=== PATIENT | male | born 1980 | race Caucasian/White ===

== ENCOUNTER 2019-06-04 15:20 | Emergency (ER) | payer BC, SELFPAY ==
[2019-06-04 15:20] VITALS: PULSE 90
[2019-06-04 15:22] VITALS: BP 135/87; RESP 16; TEMP 36.9; BMI 26.4
[2019-06-04 15:27] VITALS: PULSE 77; O2SAT 97
--- NOTE | 2019-06-04 15:33 | XR_ITS ---
WS: [id number] XR hand LT min 3V* [id number] REASON FOR EXAM: trauma FINDINGS: Comminuted fracture of the distal phalanx of the third digit with a spiral fracture in the middle and proximal third phalanx. Displacement of the distal fourth phalanx with fracture through th e distal tuft. XR/XR hand LT min 3V* [id number] IMPRESSION: Dislocation of the distal fourth phalanx with a tuft fracture Comminuted tuft fracture of the distal phalanx with partial amputation of the t hird digit with spiral fractures of the middle and proximal third phalanges.
--- NOTE | 2019-06-04 15:34 | W.ED.GENADLT ---
Documented by User: TIMUR Chou 06/04/19 15:57 HPI - General Adult General: Chief complaint: Extremity Injury, Upper Stated complaint: middle and ring fingers lacerations Time Seen by Provider: 06/04/19 15:23 History of Present Illness: HPI narrative: Patient got to middle fingers the left hand into the marker just about hour or 2 ago. Planes about pain laceration open wound. Tetanus is up-to-date MD complaint: Open fracture Onset (ago): hour(s) Location: left and upper extremity Severity: severe Severity scale (1-10): 8 Quality: aching Pain Consistency: constant Associated symptoms: Deny chest pain, dyspnea, headache(s), nausea, rash or vomiting Treatments prior to arrival: none Review of Systems Const: Denies: fever, chills or body aches Eyes: Denies: change in vision or blurry vision ENMT: Denies: throat pain or nasal congestion Card: Denies: chest pain or shortness of breath on exertion Resp: Denies: shortness of breath, productive cough or non-productive cough GI: Denies: abdominal pain, nausea or vomiting : Denies: difficulty urinating Musc: Reports: extremity pain and deformity (Left hand #3 and 4 fingers with open fracture laceration) Skin/Breast: Denies: rash Neuro: Denies: headache Psych: Denies: anxiety or depression Lucho/Lymph: Denies: easy bruising PFSH ED PFSH: Social History Smoking and tobacco status: never smoked Physical Exam Const: COMMON NORMALS: no apparent distress, average body habitus and oriented x3 HENMT: COMMON NORMALS: normocephalic HEAD & SCALP: normal to inspection and normocephalic FACE & SINUS: normal facial exam Eye: COMMON NORMALS: conjunctivae normal GENERAL EYE: normal appearance of both eyes CONJUNCTIVA: Yes conjunctivae normal Neck/C-Spine: COMMON NORMALS: no JVD Chest: COMMONS NORMALS: inspection of chest normal Resp: COMMON NORMALS: normal respiratory effort and clear to auscultation bilaterally AUSCULTATION: clear to auscultation bilaterally Cardio: COMMON NORMALS: no JVD, regular rate and regular rhythm RATE: regular rate RHYTHM: regular rhythm GI: COMMON NORMALS: normal to inspection, nondistended, normoactive bowel sounds Extremity: COMMON NORMALS: normal to inspection and full ROM LEFT UPPER EXTREMITY: Yes hand & digits (Laceration and bone fragments found in #3-4 fingers distal aspect with no active bleeding) Neuro: COMMON NORMALS: oriented x3 Course Vital Signs: Vital signs: Vital Signs Temperature 98.5 F 06/04/19 15:22 Pulse Rate 62 06/04/19 17:15 Respiratory Rate 18 06/04/19 17:15 Blood Pressure 140/84 06/04/19 17:15 Pulse Oximetry 97 06/04/19 17:15 MDM - General Adult MDM Narrative: Medical decision making narrative: Discussed case with Dr. Funez and he is taking the case over Lab Data: Labs: Lab Results 06/04/19 06/04/19 06/04/19 Range/Units 15:42 15:42 15:42 WBC 7.3 (4.0-10.0) 10^3/ uL RBC 5.25 (4.1-5.3) 10^6/u L Hgb 15.5 (11.7-16.6) g/dL Hct 43.7 (42.0-52.0) % MCV 83.2 (80-94) fL MCH 29.5 (28.0-34.0) pg MCHC 35.5 (30.0-36.0) g/dL RDW 11.8 L (12.1-15.1) % Plt Count 218 (130-400) 10^3/c mm MPV 10.2 (7.4-10.4) fL Neut % (Auto) 67.9 % Lymph % (Auto) 24.9 % Gallia % (Auto) 5.5 % Eos % (Auto) 1.2 % Baso % (Auto) 0.4 % Neut # (Auto) 4.9 (1.8-7.7) 10^3/u L Lymph # (Auto) 1.8 (0.8-4.8) 10^3/u L Gallia # (Auto) 0.4 (0.2-0.9) 10^3/u L Eos # (Auto) 0.1 (0.0-0.8) 10^3/u L Baso # (Auto) 0.0 (0.0-0.1) 10^3/u L Nucleated RBC % (a uto) 0 % Nucleated RBCs # 0.0 /100WBC PT 14.00 H (10.5-13.3) SECO NDS INR 1.05 (0.8-1.2) Sodium 138 (136-145) mmol/L Potassium 3.9 (3.5-5.1) mmol/L Chloride 104 (98-107) mmol/L Carbon Dioxide 24 (22-29) mmol/L Anion Gap 13.9 (5-19) BUN 25 H (6-20) mg/dL Creatinine 1.0 (0.7-1.2) mg/dL GFR Calculation 84.5 L (90-130) mL/min Glucose 123 H (65-115) mg/dL Calcium 9.8 (8.5-10.5) mg/dL Total Bilirubin 0.3 (0.15-1.2) mg/dL AST 19 (0-40) U/L ALT 28 (0-41) U/L Alkaline Phosphata se 92 (40-130) IU/L Total Protein 7.4 (6.6-8.7) g/dL Albumin 4.5 (3.5-5.2) g/dL Globulin 2.9 (1.3-4.6) g/dL Discharge Plan Discharge Patient Disposition: Home, Self-Care Condition: Stable Prescriptions: New Augmentin 875-125 mg tablet 1 tab PO Q12H 7 Days Qty: 14 RF: 0 mupirocin 2 % ointment 1 applic TOPICAL DAILY Qty: 30 RF: 0 tramadol 50 mg tablet 50 mg PO Q8H PRN (Reason: pain) Qty: 20 RF: 0 No Action Vitamin C 1,000 mg Tablet 500 mg PO DAILY RF: 0 Fish Oil 1 cap PO DAILY RF: 0 Discharge Orders: Discharge Order (Routine); Ordered 06/04/19 Ordered By: Riley Evans Referrals: Isai Rdz MD [Primary Care Provider] - Activity Restrictions/Additional Instructions: Bulky wet dressing change once a day use topical antibiotic. Oral antibiotic twice a day pain medicine as as prescribed. Ortho clinic will call next week with an appointment for early follow-up. Discharge Date/Time: 06/04/19 17:16 Sign Out Sign Out Data: Patient Sign Out occurred on 06/04/19 at 15:59. Patient's care was discussed, and care was transferred from to Riley Evans DO. Coding Level of Care Code ED Lathe Sander for Chg Fwd Exam Comprehensive Documented by User: Riley Evans DO 06/04/19 17:26 HPI - General Adult General: Chief complaint: Extremity Injury, Upper Stated complaint: middle and ring fingers lacerations Time Seen by Provider: 06/04/19 15:23 PFS ED PFSH: Social History Smoking and tobacco status: never smoked Physical Exam Extremity: OTHER: Left third and fourth fingers show crush injury with avulsion of the nails. X-rays show distal tuft pulverization fracture on the third finger and fracture of the distal phalanx on the fourth. No active bleeding. Patient reports his tetanus is up-to-date. Course ED course: Patient seen and examined by myself. I also discussed the case with Dr. Gaviria. Patient would prefer to treat conservatively and if it does not heal well or show signs of infection then would wish to have partial amputation of the tips of the finger. We discussed the risks and benefits he actually had an extremely similar episode 10 years ago and managed to not have to have an amputation of his right index finger. Given a gram of Ancef start him on Augmentin and gave tramadol for pain at home elevate hand to use topical antibiotic ointment and change dressings at least once a day will make a short-term follow-up with Ortho in 2 to 3 days. If he has any worsening or development or problems in the interval he should return immediately to the emergency room. Vital Signs: Vital signs: Vital Signs Temperature 98.5 F 06/04/19 15:22 Pulse Rate 62 06/04/19 17:15 Respiratory Rate 18 06/04/19 17:15 Blood Pressure 140/84 06/04/19 17:15 Pulse Oximetry 97 06/04/19 17:15 MDM - General Adult MDM Narrative: Medical decision making narrative: I supervised care provided to Ruel Louie by the DIRECTOR INPATIENT HEADACHE PROGRAM/PA. I personally interviewed the patient. Lab Data: Labs: Lab Results 06/04/19 06/04/19 06/04/19 Range/Units 15:42 15:42 15:42 WBC 7.3 (4.0-10.0) 10^3/ uL RBC 5.25 (4.1-5.3) 10^6/u L Hgb 15.5 (11.7-16.6) g/dL Hct 43.7 (42.0-52.0) % MCV 83.2 (80-94) fL MCH 29.5 (28.0-34.0) pg MCHC 35.5 (30.0-36.0) g/dL RDW 11.8 L (12.1-15.1) % Plt Count 218 (130-400) 10^3/c mm MPV 10.2 (7.4-10.4) fL Neut % (Auto) 67.9 % Lymph % (Auto) 24.9 % Gallia % (Auto) 5.5 % Eos % (Auto) 1.2 % Baso % (Auto) 0.4 % Neut # (Auto) 4.9 (1.8-7.7) 10^3/u L Lymph # (Auto) 1.8 (0.8-4.8) 10^3/u L Gallia # (Auto) 0.4 (0.2-0.9) 10^3/u L Eos # (Auto) 0.1 (0.0-0.8) 10^3/u L Baso # (Auto) 0.0 (0.0-0.1) 10^3/u L Nucleated RBC % (a uto) 0 % Nucleated RBCs # 0.0 /100WBC PT 14.00 H (10.5-13.3) SECO NDS INR 1.05 (0.8-1.2) Sodium 138 (136-145) mmol/L Potassium 3.9 (3.5-5.1) mmol/L Chloride 104 (98-107) mmol/L Carbon Dioxide 24 (22-29) mmol/L Anion Gap 13.9 (5-19) BUN 25 H (6-20) mg/dL Creatinine 1.0 (0.7-1.2) mg/dL GFR Calculation 84.5 L (90-130) mL/min Glucose 123 H (65-115) mg/dL Calcium 9.8 (8.5-10.5) mg/dL Total Bilirubin 0.3 (0.15-1.2) mg/dL AST 19 (0-40) U/L ALT 28 (0-41) U/L Alkaline Phosphata se 92 (40-130) IU/L Total Protein 7.4 (6.6-8.7) g/dL Albumin 4.5 (3.5-5.2) g/dL Globulin 2.9 (1.3-4.6) g/dL Discharge Plan Discharge Patient Disposition: Home, Self-Care Condition: Stable Prescriptions: New Augmentin 875-125 mg tablet 1 tab PO Q12H 7 Days Qty: 14 RF: 0 mupirocin 2 % ointment 1 applic TOPICAL DAILY Qty: 30 RF: 0 tramadol 50 mg tablet 50 mg PO Q8H PRN (Reason: pain) Qty: 20 RF: 0 No Action Vitamin C 1,000 mg Tablet 500 mg PO DAILY RF: 0 Fish Oil 1 cap PO DAILY RF: 0 Discharge Orders: Discharge Order (Routine); Ordered 06/04/19 Ordered By: Riley Evans Referrals: Isai Rdz MD [Primary Care Provider] - Activity Restrictions/Additional Instructions: Bulky wet dressing change once a day use topical antibiotic. Oral antibiotic twice a day pain medicine as as prescribed. Ortho clinic will call next week with an appointment for early follow-up. Discharge Date/Time: 06/04/19 17:16 Sign Out Sign Out Data: Patient Sign Out occurred on 06/04/19 at 15:59. Patient's care was discussed, and care was transferred from to Riley Evans DO. Coding Level of Care Code ED Lathe Sander for Chg Fwd Exam Comprehensive
[2019-06-04 15:53] VITALS: RESP 16
[2019-06-04] MEDS: ondansetron 2 mg/ML SDV 2 mL 4 MG IVP (15:53)
[2019-06-04] MEDS: morphine 4 mg/mL SDV 1 mL IVP (15:53)
[2019-06-04 16:03] LABS: Basophils % 0.4 %; Eosinophils # 0.1 10^3/uL (0.0-0.8); Eosinophils % 1.2 %; Hematocrit 43.7 % (42.0-52.0); Hemoglobin 15.5 g/dL (11.7-16.6); Lymphocytes # 1.8 10^3/uL (0.8-4.8); Lymphocytes % 24.9 %; Mean Corpuscular HGB Conc 35.5 g/dL (30.0-36.0); Mean Corpuscular Hemoglobin 29.5 pg (28.0-34.0); Mean Corpuscular Volume 83.2 fL (80-94); Mean Platelet Volume 10.2 fL (7.4-10.4); Monocytes # 0.4 10^3/uL (0.2-0.9); Monocytes % 5.5 %; Neutrophils # 4.9 10^3/uL (1.8-7.7); Neutrophils % 67.9 %; Nucleated Red Blood Cells % 0 %; Platelet Count 218 10^3/cmm (130-400); Red Blood Count 5.25 10^6/uL (4.1-5.3); Red Cell Distribution Width 11.8 % (12.1-15.1); White Blood Count 7.3 10^3/uL (4.0-10.0)
[2019-06-04] MEDS: ceFAZolin 1,000 MG in sodium chloride 0.9% (plus) 50 ML 100 MG IV (16:07)
[2019-06-04 16:08] LABS: INR 1.05 (0.8-1.2)
[2019-06-04] MEDS: sodium chloride 0.9% 1,000 ML 100 ML IV (16:08)
[2019-06-04 16:13] LABS: Alanine Aminotransferase 28 U/L (0-41); Albumin Level 4.5 g/dL (3.5-5.2); Alkaline Phosphatase 92 IU/L (40-130); Anion Gap 13.9 (5-19); Aspartate Amino Transferase 19 U/L (0-40); Blood Urea Nitrogen 25 mg/dL (6-20); Calcium 9.8 mg/dL (8.5-10.5); Carbon Dioxide 24 mmol/L (22-29); Chloride 104 mmol/L (98-107); Globulin 2.9 g/dL (1.3-4.6); Glomerular Filtration Rate 84.5 mL/min (90-130); Glucose 123 mg/dL (65-115); Potassium 3.9 mmol/L (3.5-5.1); Sodium 138 mmol/L (136-145); Total Bilirubin 0.3 mg/dL (0.15-1.2); Total Protein 7.4 g/dL (6.6-8.7)
[2019-06-04 17:15] VITALS: BP 140/84; PULSE 62; RESP 18; O2SAT 97
--- NOTE | 2019-06-07 15:41 | DCPLANNER ---
government sales manager had message to schedule a follow up appointment for patient with ortho. government sales manager called the ortho clinic, spoke with Catrina, gave clinic patients information. government sales manager was told that patients information would be printed and reviewed. Clinic will call case management director and patient with appointment information.
--- NOTE | 2019-06-23 09:24 | DCPLANNER ---
electrical and instrumentation manager spoke with Kaela at [facility], about an appointment for patient, employment evaluator/case manager was told that patient will be seen in clinic if the need arises.
== END 2019-06-04 17:16 | disposition home or self-care (01) ==
PROVIDERS: Nurse Practitioner Family; Emergency Provider Family Medicine; Family Provider Urology; PCP Urology
DX: S62.635A Displaced fracture of distal phalanx of left ring finger, initial encounter for closed fracture (principal); S62.613A Displaced fracture of proximal phalanx of left middle finger, initial encounter for closed fracture; X58.XXXA Exposure to other specified factors, initial encounter
CPT/HCPCS: 73130; 80053; 85025; 85610; 96361; 96365; 96375; 99282; 99283; J0690; J2270; J2405; J7030

== ENCOUNTER → 2019-11-09 15:03 | Outpatient (BNVA) | payer BC, SELFPAY | PROVIDERS: Family Provider Urology; PCP Urology; Referring Provider Registered Nurse; Visit Provider Orthopaedic Surgery | DX: M77.11 Lateral epicondylitis, right elbow (principal) | CPT/HCPCS: 73080 ==

== ENCOUNTER → 2020-03-22 11:38 | Outpatient (BNVA) | payer BC, SELFPAY | PROVIDERS: Family Provider Urology; PCP Urology; Visit Provider Registered Nurse | DX: R53.83 Other fatigue (principal); E29.1 Testicular hypofunction | CPT/HCPCS: 80053; 84402; 84403; 85025 ==

== ENCOUNTER → 2022-01-10 10:48 | Outpatient (BNVA) | payer BC, SELFPAY | PROVIDERS: Family Provider Urology; PCP Urology; Visit Provider Registered Nurse | DX: M25.50 Pain in unspecified joint (principal) | CPT/HCPCS: 80053; 80061; 82607; 84443; 85025; 85651; 86038; 86140 ==